=== PATIENT | female | born 1955 | race Caucasian/White ===

== ENCOUNTER 2018-05-17 07:55 | Inpatient (IN) ==
[2018-05-11 12:59] LABS: Appearance,Urine CLEAR; Bacteria,Urine MOD /hpf (0); Bilirubin,Urine NEG (NEG); Color,Urine YELLOW; Glucose,Urine (UA) NEGATIVE (NEG); Leukocyte Esterase,Urine 25 /uL (NEG); Mucus,Urine MANY /hpf (0); Protein,Urine NEG (NEG); Specific Gravity,Urine 1.021 (1.000-1.035); Urine Blood NEG mg/dL (<0.03); Urine RBC 2 /hpf (0-1); Urine Squamous Epithelial Cell 2 /hpf (0-4); Urine WBC 15 /hpf (0-4); Urobilinogen,Urine NEG (NEG)
[2018-05-11 14:24] LABS: Basophils # (Auto) 0 K/mcL (0.0-0.3); Basophils % (Auto) 0.4 % (0.0-2.0); Eosinophils # (Auto) 0.3 K/mcL (0.0-0.7); Eosinophils % (Auto) 2.7 % (0.0-7.0); Granulocytes % (Auto) 68.8 % (38.0-78.0); Lymphocytes # (Auto) 2.7 K/mcL (1.5-4.8); Lymphocytes % (Auto) 25.2 % (15.5-49.0); Mean Cell Volume 90.5 fL (80.0-100.0); Mean Corpuscular HGB Conc 32.6 g/dL (31.0-36.0); Monocytes # (Auto) 0.3 K/mcL (0.1-0.9); Monocytes % (Auto) 2.9 % (1.0-12.0); Platelet Count 296 K/mcL (140-440); RBC 4.36 M/mcL (4.00-5.20); Red Cell Distribution Width 14.8 % (11.5-14.5)
[2018-05-11 14:41] LABS: Blood Urea Nitrogen 24 mg/dl (8-23)
[2018-05-11 15:33] LABS: Estimated Average Glucose(eAG) 123 mg/dL; Hemoglobin A1C 5.9 % HGB (4.0-6.0)
[~2018-05-17 07:55] MED LIST: CELECOXIB 200 MG CAPSULE PO SCH; GABAPENTIN 300 MG CAPSULE PO SCH; ceFAZolin 1 GM VIAL IV SCH; oxyCODONE 10 MG TAB.ER.12H PO SCH
[2018-05-17] MEDS ORDERED: HEPARIN 20,000 UNIT/ML VIAL IR ONE (10:11)
[2018-05-17] MEDS ORDERED: MIDAZOLAM 5 MG/5 ML VIAL IV ONE (11:15)
[2018-05-17] MEDS ORDERED: PHENYLEPHRINE 10 MG/ML VIAL IV ONE (11:15)
[2018-05-17] MEDS ORDERED: ePHEDrine 50 MG/ML AMPUL IV ONE (11:15)
[2018-05-17] MEDS ORDERED: DEXAMETHASONE 10 MG/ML VIAL IV ONE (11:15)
[2018-05-17] MEDS ORDERED: PROPOFOL 200 MG/20 ML VIAL IV ONE (11:15)
[2018-05-17] MEDS ORDERED: ONDANSETRON 4 MG/2 ML VIAL IV ONE (11:15)
[2018-05-17] MEDS ORDERED: LIDOCAINE HCL/PF 100 MG/5 ML SYRINGE IV ONE (11:15)
[2018-05-17] MEDS ORDERED: TRANEXAMIC ACID 1,000 MG/10 ML VIAL IV ONE ×2 (11:15→12:23)
[2018-05-17 12:16] LABS: Appearance,Urine CLEAR; Bilirubin,Urine NEG (NEG); Color,Urine STRAW; Glucose,Urine (UA) NEGATIVE (NEG); Leukocyte Esterase,Urine NEG /uL (NEG); Protein,Urine NEG (NEG); Specific Gravity,Urine 1.012 (1.000-1.035); Urine Blood NEG mg/dL (<0.03); Urobilinogen,Urine NEG (NEG)
[2018-05-17] MEDS ORDERED: LACTATED RINGERS 250 ML IV PRN (12:16)
[2018-05-17] MEDS ORDERED: IPRATROPIUM/ALBUTEROL 3 ML AMPUL.NEB NEB PRN (12:16)
[2018-05-17] MEDS ORDERED: ONDANSETRON 4 MG/2 ML VIAL IV PRN ×2 (12:16→12:23)
[2018-05-17] MEDS ORDERED: MEPERIDINE 25 MG/ML SYRINGE IV PRN (12:16)
[2018-05-17] MEDS ORDERED: ACETAMINOPHEN 1,000 MG/100 ML BOTTLE IV ONE (12:16)
[2018-05-17] MEDS ORDERED: fentaNYL 100 MCG/2 ML VIAL IV PRN (12:16)
[2018-05-17] MEDS ORDERED: KETOROLAC 15 MG/ML VIAL IV PRN ×2 (12:16→12:23)
[2018-05-17] MEDS ORDERED: FLUMAZENIL 0.1 MG/ML ML IV PRN (12:16)
[2018-05-17] MEDS ORDERED: NALOXONE HCL 0.4 MG/ML VIAL IV PRN (12:16)
[2018-05-17] MEDS ORDERED: PROMETHAZINE 25 MG/ML VIAL IV PRN (12:16)
[2018-05-17] MEDS ORDERED: BENZOCAINE/MENTHOL 1 LOZENGE PO PRN ×2 (12:16→12:23)
[2018-05-17] MEDS ORDERED: diphenhydrAMINE 50 MG/ML VIAL IV PRN (12:16)
[2018-05-17] MEDS ORDERED: POLYETHYLENE GLYCOL 3350 17 GM PACKET PO PRN (12:23)
[2018-05-17] MEDS ORDERED: BISACODYL 10 MG SUPP.RECT PR PRN (12:23)
[2018-05-17] MEDS ORDERED: FLEETS ADULT ENEMA PR PRN (12:23)
[2018-05-17] MEDS ORDERED: MAGNESIUM HYDROXIDE 30 ML ORAL.SUSP PO PRN (12:23)
--- NOTE | 2018-05-17 12:23 | Brief Operative Note ---
Date of procedure: 05/17/18 Pre-op diagnosis: Left hip severe DJD Post-op diagnosis: same Procedure: Left anterior total hip arthroplasty Grafts/Implants: Yes (Depuy Actis 3 femur, +1 32 mm delta head, 48 cup, neutral altrx liner) Anesthesia: spinal, GLMA Findings: arthritis Complications: none Surgeon: Yoseph Coffey Typists Supervisor: Dante Singletary Estimated blood loss (cc): 150 Specimens Removed/Pathology: none sent Condition: stable Disposition: PACU
[2018-05-17] MEDS ORDERED: LACTATED RINGERS 1,000 ML IV SCH (12:30)
--- NOTE | 2018-05-17 13:08 | XRay Report ---
HISTORY: Postop left hip replacement FINDINGS: There is a well-positioned left total hip prosthesis. No fracture is present and there are no abnormal soft tissue calcifications around the joint. Mild osteoarthritis is present in the right hip. There is severe arthritis in the facet joints at L4-5 and L5-S1. Fallopian tube clamps are present in the midline of the pelvis. IMPRESSION: Well-positioned left hip prosthesis Interpreted and Authenticated by: Eliot Alfaro 05/17/18
--- NOTE | 2018-05-17 13:10 | Operative Note ---
DATE OF OPERATION: 05/17/2018 PREOPERATIVE DIAGNOSIS: Left hip severe osteoarthritis. POSTOPERATIVE DIAGNOSIS: Left hip severe osteoarthritis. PROCEDURE PERFORMED: Left anterior total hip arthroplasty placing a DePuy Actis size 3 standard offset femoral stem, a +1, 32 mm delta ceramic head ball, a 48 3-hole Summit cup with a neutral Altrx liner. SURGEON: Yoseph Coffey MD COLLECTION SYSTEMS TECHNICIAN: Colton Singletary PA-C ANESTHESIA: Spinal plus DRAINS: None. SPECIMENS: Femoral head which was discarded. BLOOD LOSS: 200 mL COMPLICATIONS: None. POSTOPERATIVE CONDITION: Stable. INDICATIONS FOR SURGERY: This is a 63-year-old female who has had longstanding progressive worsening left hip pain. Radiographs showed severe [id number] osteoarthritis. FINDINGS AT SURGERY: Showed severe arthritis. Post-implantation showed components satisfactorily positioned with only slight leg lengthening. PROCEDURE IN DETAIL: The patient had been seen preoperatively and informed consent had been obtained after discussion of risks and benefits of surgery. Risks including, but not limited to, bleeding, possibly requiring transfusion; infection, possibly requiring implant removal and prolonged IV antibiotics; injury to nerves, blood vessels, and other surrounding structures; anesthetic risks; incomplete or no resolution of symptoms; leg length discrepancy; dislocation; fracture; DVT and pulmonary embolus risks; and the possibility of needing further revision surgery. She understood and wished to proceed. Correct operative site was marked and the patient was given spinal anesthesia. She was then taken to the operating room and LMA general given. She was positioned on the fracture table and pressure points carefully padded. Left hip and groin were then carefully prepped and draped in normal sterile fashion and a timeout performed verifying patient name, operative site, and plan. Ioban was used to cover all skin surfaces and a standard anterior approach incision was made with a scalpel through skin and subcutaneous tissue. Hemostasis was obtained with Bovie cautery. Careful blunt dissection was taken down onto the tensor fascia and this was undermined circumferentially. IrriSept was irrigated and then a ring retractor placed. Tensor fascia was incised in line with the muscle fibers. Careful blunt dissection was taken medial to the muscle belly and then blunt cobra retractors were placed on the superior and inferior neck. Circumflex vessels were coagulated and cut and vastus fascia split distally. Anterior capsulectomy was performed and capsule releases taken out towards the trochanters. Corkscrew was placed in the femoral head and an osteotome used under fluoro to identify our neck cut trajectory. Oscillating tip saw was used to make our neck cut and the femoral head was removed. Acetabulum was exposed. Labrum was excised circumferentially as well as soft tissue from the floor. We started reaming under fluoroscopy initially directly medializing to the tear drop and then increasing reamer size and angle until a 47 reamer got rim ream. We trialed a 47 and got pressfit, so a 48 3-hole Summit cup was opened. Acetabulum was irrigated with IrriSept, after a minute it was copiously pulse lavaged with saline and then the cup was impacted at approximately 40 degrees of inclination and 25 to 30 degrees of anteversion. We got good pressfit. We used a curved osteotome to remove the anterior and inferior osteophytes. A center hole cover was placed and then a neutral AltrX liner was carefully aligned and impacted. Tabs were carefully verified to be fully seated circumferentially and then traction was removed from the leg. It was externally rotated and the capsule was released around the medial neck and posteriorly. The leg was then extended and adducted and capsule was released with Bovie out to the greater trochanter. Once adequate proximal femur exposure was obtained, a box osteotome was used to gain canal entry. An awl was used to identify canal trajectory. Rongeur and rasp were used to lateralize. We then sequentially broached up to a size 3. We calcar planed down onto this and then the hip was reduced without excessive tension. AP pelvis was taken to verify neutral rotation and AP of the nonoperative and operative were taken. X-rays were overlaid and showed good component position with only mild limb lengthening. We went ahead and redislocated. We removed the trial components. Definitive stem and head ball were opened. The femoral canal was irrigated with IrriSept, after a minute was copiously pulse lavaged with saline and the stem was impacted. It did seat fully on the neck cut and then a stem was carefully cleaned and dried and the head ball briskly impacted with multiple blows of the mallet. The hip was reduced, then the joint filled with IrriSept. Fluoro was brought in and final images were taken. We then did a pulse lavage and then two #1 Vicryl running stitches were used to close the tensor fascia. Ring retractor was removed, irrigated IrriSept was irrigated and then after a minute pulse lavaged with saline. Fat was tacked to fascia with Vicryl and then 2-0 Monocryl for subcutaneous and xiang for skin. Xeroform sterile dressings were applied. The patient was then awakened, extubated, and transferred to recovery in stable condition. BJB:aftab Job ID: [id number] Doc ID: [id number] Yoseph Coffey MD
[2018-05-17] MEDS: 0.9 % SODIUM CHLORIDE 1,000 ML IV SCH (17:01)
[2018-05-17] MEDS: 0.9 % SODIUM CHLORIDE 10 ML SYRINGE IV SCH ×2 (17:02→22:45)
[2018-05-17] MEDS: ceFAZolin 1 GM VIAL IV SCH (17:04)
[2018-05-17] MEDS: OMEPRAZOLE 20 MG CAPSULE PO SCH (17:46)
[2018-05-17] MEDS: SENNOSIDES 1 TABLET PO SCH (20:31)
[2018-05-17] MEDS: ASPIRIN 325 MG ENTERIC COATED TABLET PO SCH (20:32)
[2018-05-17] MEDS: GABAPENTIN 300 MG CAPSULE PO SCH (20:32)
[2018-05-17] MEDS: DOCUSATE SODIUM 100 MG CAPSULE PO SCH (20:32)
[2018-05-17] MEDS: QUETIAPINE FUMARATE 400 MG PO SCH (20:38)
[2018-05-18] MEDS: oxyCODONE/APAP 5/325MG TABLET PO PRN ×4 (02:07→20:40)
[2018-05-18] MEDS: 0.9 % SODIUM CHLORIDE 1,000 ML IV SCH ×3 (02:09→23:34)
[2018-05-18] MEDS: ceFAZolin 1 GM VIAL IV SCH (02:09)
[2018-05-18] MEDS: 0.9 % SODIUM CHLORIDE 10 ML SYRINGE IV SCH ×2 (06:44→15:40)
[2018-05-18] MEDS: OMEPRAZOLE 20 MG CAPSULE PO SCH ×2 (07:17→17:30)
--- NOTE | 2018-05-18 07:50 | Orthopedic Progress Note ---
Subjective Patient information: Note initiated : 05/18/18 at 7:48 am Service Date, if different from initiated Date: [] Patient: Claudine Bucio 63 y/o F admitted on 05/17/18 for Left Total Hip Arthroplasty. Chief Complaint: [] Principal diagnosis: s/p L total hip arthroplasty Interval history: pain currently tolerable on meds, wants to go swing bed in [place] Objective Vital signs: Vital Signs Temp Pulse Resp BP BP Pulse Ox 05/18/18 02:20 97.3 F 90 14 109/65 94 05/17/18 23:08 98.4 F 93 H 12 95/58 94 05/17/18 19:55 97.8 F 108 H 16 98/56 92 05/17/18 16:23 107 H 05/17/18 16:00 97.6 F 107 H 18 130/60 94 05/17/18 13:25 97.2 F 83 13 105/55 97 05/17/18 13:10 97.4 F 79 14 98/55 99 05/17/18 12:55 97.0 F 80 13 100/52 100 05/17/18 12:50 83 11 L 100/52 100 05/17/18 12:45 77 12 101/47 100 05/17/18 12:40 97.0 F 79 12 100/54 100 05/17/18 12:23 107 H 05/17/18 08:00 97.4 F 101 H 16 115/74 94 05/17/18 07:55 97.4 F 16 94 Intake and Output 05/17/18 05/18/18 05/18/18 21:59 05:59 13:59 Intake Total 1300 1478 Output Total 250 1400 500 Balance 1050 78 -500 Intake: IV 1198 Sodium Chloride 0.9% 1,000 ml @ 1198 100 mls/hr IV .Q10H COUNTS INCLUDE 234 BEDS AT THE [facility] Rx#: [id number] Oral 1300 280 Output: Void Amount 250 1400 500 Other: Meal Dinner Percent of Meal Consumed 100% Feeding Ability Independent Urine Appearance Clear Urine Color Bright Yellow Bright Yellow Pale Urine Odor Normal Normal # Voids 1 1 Weight 150 lb 8 oz Intake & Output: Intake & Output 05/17/18 05/18/18 05/18/18 21:59 05:59 13:59 Intake Total 1300 1478 Output Total 250 1400 500 Balance 1050 78 -500 Weight 150 lb 8 oz Intake: IV 1198 Sodium Chloride 0.9% 1,000 ml @ 1198 100 mls/hr IV .Q10H AG Rx#: [id number] Oral 1300 280 Output: Void Amount 250 1400 500 Other: Meal Dinner Percent of Meal Consumed 100% Feeding Ability Independent Urine Appearance Clear Urine Color Bright Yellow Bright Yellow Pale Urine Odor Normal Normal # Voids 1 1 Dressing: Yes clean, Yes dry Neurological exam IM: Yes alert, Yes oriented X3 - Labs CBC & BMP: 05/18/18 04:12 05/11/18 11:26 Labs: 05/18/18 05/11/18 04:12 11:26 Hgb 11.7 L 12.9 Hct 36.1 39.5 Assessment and Plan (1) Status post total hip replacement, left POD#1 - doing well -PT, pain control -d/c plan to [facility] bed likely Tuesday Status: Acute
--- NOTE | 2018-05-18 07:53 | Discharge Summary ---
Providers - Providers Patient information: Note initiated : 05/18/18 at 7:50 am Service Date, if different from initiated Date: [] Patient: Claudine Bucio 63 y/o F admitted on 05/17/18 for Left Total Hip Arthroplasty. Chief Complaint: [] Date of admission: 05/17/18 Discharge date: 05/20/18 Attending physician: Yoseph Coffey Hospitalization Hospital course: admitted for pain control, progressed well over hospital course Discharge diagnosis: s/p L total hip arthroplasty Exam - Exam Clean and dry: Yes Weight bearing status: as tolerated Ortho Discharge - MARY KAY - Patient Instructions Diet: Regular Diet Activity: activity as tolerated, weight bearing as tolerated Total Hip Protocol: Follow activity instructions as provided by Physical Therapy. Anterior approach, no dislocation precautions Dressing Care: Aquacel Ag - leave on for 5 days (Start dry dressing changes daily after 7 day dressing removed) - Problem Maintenance (1) Status post total hip replacement, left Status: Acute - Follow Up Plan Follow Up Appointments: Dante Singletary PA-C [Physician Manager Acute] - 06/01/18 11:20 am Disposition: [facility] Swing Bed Prognosis: Good Rehab Potential: Good I certify that the patient requires SNF services: Yes - Orders For Discharge Prescriptions: Aspirin [Ecotrin] 325 mg PO BID #60 tab.ec oxyCODONE/APAP [Percocet 5-325 mg] 1 - 2 tab PO Q4H PRN #60 tab PRN Reason: Pain Additional Discharge Orders: Physical Therapy at Discharge - MARY KAY Location: None Selected Toilet Riser Discharge Order Location: None Selected Walker Location: None Selected Pending Studies Resuscitation Status Full Code Diet Regular Diet Start TueMay 17 1225 Aspirin (Ecotrin) 325 mg PO BID [facility] Last Admin: 05/17/18 20:32 Dose: 325 mg Documented by: DARRION Docusate Sodium (Colace) 100 mg PO BID [facility] Last Admin: 05/17/18 20:32 Dose: 100 mg Documented by: DARRION Gabapentin (Neurontin) 300 mg PO BID [facility] Last Admin: 05/17/18 20:32 Dose: 300 mg Documented by: DARRION Sodium Chloride (Sodium Chloride 0.9%) 1,000 mls @ 100 mls/hr IV .Q10H [facility] Last Infusion: 05/18/18 05:00 Dose: 0 mls/hr Documented by: Admin: 05/18/18 02:09 Dose: 100 mls/hr Documented by: Infusion: 05/18/18 02:09 Dose: 100 mls/hr Documented by: Admin: 05/17/18 17:01 Dose: 100 mls/hr Documented by: BELGICA Morphine Sulfate (Morphine) 0 mg IV Q1HP PRN PRN Reason: PAIN LEVEL > 6 Last Admin: 05/17/18 14:06 Dose: 4 mg Documented by: BELGICA Omeprazole (Prilosec) 20 mg PO BIDAC [facility] Last Admin: 05/18/18 07:17 Dose: 20 mg Documented by: Admin: 05/17/18 17:46 Dose: 20 mg Documented by: BELGICA Oxycodone/Acetaminophen (Percocet 5-325 Mg) 0 tab PO Q4HP PRN PRN Reason: PAIN LEVEL 3-6 Last Admin: 05/18/18 06:30 Dose: 2 tab Documented by: Admin: 05/18/18 02:07 Dose: 2 tab Documented by: DARRION Quetiapine Fumarate ([Seroquel Xr] 400 Mg) 1 dose PO HS [facility] Last Admin: 05/17/18 20:38 Dose: 1 dose Documented by: DARRION Senna (Senokot) 2 tab PO HS [facility] Last Admin: 05/17/18 20:31 Dose: 2 tab Documented by: DARRION Sodium Chloride (Saline Flush) 10 ml IV Q8 [facility] Last Admin: 05/18/18 06:44 Dose: 10 ml Documented by: Admin: 05/17/18 22:45 Dose: Not Given Documented by: Admin: 05/17/18 17:02 Dose: 10 ml Documented by: BELGICA Shift Summary 05/18/18 04:12 Shift Summary by Shanelle Max Patient alert and oriented. Slept off and on this shift. Medicated with Percocet 2 tabs x1 for left hip pain with good effect. Needing to cut in half big pills. Tolerating PO. Up with FWW and SBA. Ambulated in hallway 120 ft. Voids to the BR. YURIDIA pumps applied to both feet. Left hip dressing CDI. VSS Initialized on 05/18/18 04:12 - END OF NOTE
[2018-05-18] MEDS: CYANOCOBALAMIN (VITAMIN B-12) 500 MCG TABLET PO SCH (09:59)
[2018-05-18] MEDS: DOCUSATE SODIUM 100 MG CAPSULE PO SCH ×2 (09:59→20:41)
[2018-05-18] MEDS: MULTIVIT,THER IRON,CA,FA & MIN 1 TABLET PO SCH (09:59)
[2018-05-18] MEDS: ARIPIPRAZOLE 20 MG TABLET PO SCH (10:00)
[2018-05-18] MEDS: GABAPENTIN 300 MG CAPSULE PO SCH ×2 (10:00→20:40)
[2018-05-18] MEDS: ASPIRIN 325 MG ENTERIC COATED TABLET PO SCH ×2 (10:00→20:41)
[2018-05-18] MEDS: VITAMIN D3 1,000 UNIT TABLET PO SCH ×2 (10:00→10:03)
[2018-05-18] MEDS: TROSPIUM CHLORIDE 60 MG PO SCH (10:02)
[2018-05-18] MEDS ORDERED: ZOLPIDEM 5 MG TABLET PO PRN (20:33)
[2018-05-18] MEDS: SENNOSIDES 1 TABLET PO SCH (20:41)
[2018-05-18] MEDS: QUETIAPINE FUMARATE 400 MG PO SCH (20:41)
[2018-05-19] MEDS: 0.9 % SODIUM CHLORIDE 10 ML SYRINGE IV SCH ×2 (05:58→05:59)
[2018-05-19] MEDS: OMEPRAZOLE 20 MG CAPSULE PO SCH (07:48)
[2018-05-19] MEDS: CYANOCOBALAMIN (VITAMIN B-12) 500 MCG TABLET PO SCH (08:59)
[2018-05-19] MEDS: ASPIRIN 325 MG ENTERIC COATED TABLET PO SCH (08:59)
[2018-05-19] MEDS: ARIPIPRAZOLE 20 MG TABLET PO SCH (08:59)
[2018-05-19] MEDS: MULTIVIT,THER IRON,CA,FA & MIN 1 TABLET PO SCH (08:59)
[2018-05-19] MEDS: VITAMIN D3 1,000 UNIT TABLET PO SCH ×2 (08:59)
[2018-05-19] MEDS: GABAPENTIN 300 MG CAPSULE PO SCH (08:59)
[2018-05-19] MEDS: DOCUSATE SODIUM 100 MG CAPSULE PO SCH (08:59)
[2018-05-19] MEDS: TROSPIUM CHLORIDE 60 MG PO SCH (09:02)
[2018-05-19] MEDS: oxyCODONE/APAP 5/325MG TABLET PO PRN (09:22)
--- NOTE | 2018-05-19 11:00 | Orthopedic Progress Note ---
Subjective Patient information: Note initiated : 05/19/18 at 10:59 am Service Date, if different from initiated Date: [] Patient: Claudine Bucio 63 y/o F admitted on 05/17/18 for Left Total Hip Arthroplasty. Chief Complaint: [] Principal diagnosis: s/p L total hip arthroplasty Interval history: still c/o significant pain Objective Vital signs: Vital Signs Temp Pulse Resp BP BP Pulse Ox 05/19/18 06:56 98 F 18 100/61 93 05/19/18 04:20 98.2 F 81 18 103/56 93 05/19/18 00:00 98 F 78 18 92/58 92 05/18/18 20:00 98.1 F 86 18 104/64 93 05/18/18 16:58 98.2 F 86 14 110/66 94 05/18/18 11:40 97.7 F 81 14 113/71 94 Intake and Output 05/18/18 05/19/18 05/19/18 21:59 05:59 13:59 Intake Total 200 240 Balance 200 240 Intake: Oral 200 240 Other: Meal Breakfast Percent of Meal Consumed 100% Feeding Ability Independent Urine Appearance Clear Urine Color Bright Yellow Bright Yellow Urine Odor Normal Normal # Voids 1 1 Weight 154 lb 8 oz Intake & Output: Intake & Output 05/18/18 05/19/18 05/19/18 21:59 05:59 13:59 Intake Total 200 240 Balance 200 240 Weight 154 lb 8 oz Intake: Oral 200 240 Other: Meal Breakfast Percent of Meal Consumed 100% Feeding Ability Independent Urine Appearance Clear Urine Color Bright Yellow Bright Yellow Urine Odor Normal Normal # Voids 1 1 Dressing: Yes clean, Yes dry, Yes intact Neurological exam IM: Yes alert, Yes oriented X3 Extremities exam IM: Yes neurovascular intact - Labs CBC & BMP: 05/19/18 04:40 05/11/18 11:26 Labs: 05/19/18 05/18/18 05/11/18 04:40 04:12 11:26 Hgb 10.8 L 11.7 L 12.9 Hct 33.5 L 36.1 39.5 Assessment and Plan (1) Status post total hip replacement, left POD#1 - doing well -PT, pain control -d/c plan to [facility] likely tomorrow Status: Acute
== END 2018-05-19 13:15 | disposition other institution (70) | DRG 470 ==
LOC: MEDSUR 07:55
PROVIDERS: ADMIT Orthopaedic Surgery; ATTEND Orthopaedic Surgery